=== PATIENT | female | born 1955 | race Two or more races ===

== ENCOUNTER 2017-10-25 12:25 | Emergency (ER) | payer MEDICARE ==
[~2017-10-25] VITALS: Ht 167.6 cm; Wt 64.8 kg
[2017-10-25] MEDS ORDERED: PROPARACAINE OPHTH 0.5%, 15ML EACHEYE ONE (13:00)
[2017-10-25] MEDS ORDERED: FLUORESCEIN OPHTHALMIC 1 MG STRIP EACHEYE ONE (13:00)
[2017-10-25] MEDS ORDERED: FLUORESCEIN OPHTHALMIC 1 MG STRIP ONE ×2 (13:13→13:21)
[2017-10-25] MEDS ORDERED: PROPARACAINE OPHTH 0.5%, 15ML ONE ×2 (13:13→13:21)
[2017-10-25] MEDS ORDERED: HYDR25TA6 PO (13:34)
[2017-10-25] MEDS ORDERED: CLON0.1T PO (13:34)
[2017-10-25 14:18] VITALS: BP 140/78
== END 2017-10-25 14:21 | disposition home or self-care (01) ==
LOC: ED 13:40
DX: H40.1120 Primary open-angle glaucoma, left eye, stage unspecified (principal); I10 Essential (primary) hypertension
CPT/HCPCS: 99283